=== PATIENT | female | born 1960 | race Caucasian/White ===

== ENCOUNTER 2017-11-26 07:36 | Emergency (ER) | payer OTHER ==
[~2017-11-26] VITALS: Ht 172.7 cm; Wt 90.7 kg
[2017-11-26] MEDS ORDERED: TRAMADOL 50 MG50 MG PO (08:54)
[2017-11-26] MEDS ORDERED: NAPROSYN500 MG PO (08:54)
[2017-11-26 10:08] VITALS: BP 145/76
== END 2017-11-26 09:45 | disposition home or self-care (01) ==
LOC: ER 07:36
DX: S83.92XA Sprain of unspecified site of left knee, initial encounter (principal); X58.XXXA Exposure to other specified factors, initial encounter; Y93.89 Activity, other specified; Y92.89 Other specified places as the place of occurrence of the external cause; Y99.8 Other external cause status